=== PATIENT | female | born 1955 | race Caucasian/White ===

== ENCOUNTER 2020-06-15 15:24 | Inpatient (IN) | payer MEDICARE, OTHER ==
[~2020-06-15] VITALS: Ht 162.6 cm; Wt 61.7 kg
[2020-06-15 15:51] LABS: BASOPHILS % (AUTO) 0.3 % (0.0-5.0); EOSINOPHILS % (AUTO) 1.9 % (0.0-8.0); HEMATOCRIT 39.1 % (36-48); LYMPHOCYTES % (AUTO) 22.7 % (21.0-51.0); MEAN CORPUSCULAR HEMOGLOBIN 30.5 pg (27.0-33.0); MEAN CORPUSCULAR HGB CONC 34.5 g/dL (32.0-36.0); MEAN CORPUSCULAR VOLUME 88.5 fL (79-99); MONOCYTES % (AUTO) 7.7 % (3.0-13.0); NEUTROPHILS % (AUTO) 67.1 % (40.0-77.0); PLATELET COUNT (AUTO) 169 K/uL (130-400); RED BLOOD CELL COUNT(AUTO) 4.42 MIL/uL (4.00-5.50); RED CELL DISTRIBUTION WIDTH 11.9 % (11.0-15.5); WHITE BLOOD COUNT (AUTO) 5.8 K/uL (4.8-10.8)
[2020-06-15 16:05] LABS: INR 1.04 (0.85-1.15); PROTHROMBIN TIME 11.3 SEC (9.6-11.6)
[2020-06-15 16:06] LABS: CREATININE 1.2 mg/dL (0.5-1.5); POTASSIUM 3.3 mmol/L (3.5-5.1)
[2020-06-15 16:13] LABS: ALBUMIN 3.4 g/dL (3.5-5.0); BILIRUBIN,TOTAL 0.5 mg/dL (0.2-1.0); TOTAL PROTEIN, SERUM 7.6 g/dL (6.0-8.3)
[2020-06-15 16:14] LABS: ABG BASE EXCESS 0.2 mmol/L (-2.0-3.0); ABG HCO3 20.8 mmol/L (21.0-28.0); ABG OXYGEN SATURATION 97.2 % (95.0-99.0); ABG PCO2 25 mmHg (32-45)
[2020-06-15] MEDS ORDERED: 0.9%NACL 1000ML 1,000 ML IV ONE (16:26)
[2020-06-15] MEDS ORDERED: CEFTRIAXONE 1G VIAL ONE (16:27)
[2020-06-15] MEDS ORDERED: AZITHROMYCIN 500MG+NS 250ML 250 ML IV ONE (16:27)
[2020-06-15] MEDS ORDERED: IOHEXOL-350 75 ML VIAL IV ONE (17:31)
[2020-06-15] MEDS ORDERED: ONDANSETRON 4MG INJ IV PRN (19:45)
[2020-06-15] MEDS ORDERED: GUAIFENESIN-CODEINE 5 ML SYRUP PO PRN (19:45)
[2020-06-15] MEDS ORDERED: 0.9%NACL 1000ML 1,000 ML IV SCH (19:45)
[2020-06-15] MEDS ORDERED: ACETAMINOPHEN 325 MG TAB PO PRN ×2 (19:45)
[2020-06-15] MEDS ORDERED: KCL 20 MEQ ERTAB PO SCH (20:00)
[2020-06-15 20:13] LABS: MAGNESIUM 1.9 mg/dL (1.80-2.40); PHOSPHORUS 3.2 mg/dL (2.5-4.9)
[2020-06-15] MEDS ORDERED: FLUTICASONE PROPIONATE 50MCG/SPRAY 16 GM BOTTLE EN SCH (21:00)
[2020-06-15] MEDS ORDERED: ENOXAPARIN SODIUM 60 MG/0.6 ML SQ SCH (21:00)
[2020-06-15] MEDS ORDERED: FAMOTIDINE 20MG TAB PO SCH (21:00)
[2020-06-16] MEDS ORDERED: DEXAMETHASONE 4 MG TAB PO SCH (09:00)
== END 2020-06-15 22:31 | disposition home or self-care (01) | DRG 204 ==
LOC: EDH 15:24 → EDHIP 19:43
PROVIDERS: ADMIT Internal Medicine; ATTEND Internal Medicine
DX: R06.00 Dyspnea, unspecified (principal); E87.1 Hypo-osmolality and hyponatremia; R06.02 Shortness of breath; E78.5 Hyperlipidemia, unspecified; I10 Essential (primary) hypertension; E87.6 Hypokalemia; Z86.16 Personal history of COVID-19; Z79.01 Long term (current) use of anticoagulants; Z88.5 Allergy status to narcotic agent
CPT/HCPCS: 36415; 36600; 71045; 71275; 80053; 82550; 82803; 83605; 83735; 83880; 84100; 84145; 84484; 85025; 85378; 85610; 85730; 86900; 86901; 87040; 93005; G0378; J0456; J0696; J7030; Q9967